=== PATIENT | female | born 1965 | race American Indian/Alaskan Native ===

== ENCOUNTER 2017-04-18 17:17 | Emergency (ER) | payer MEDICARE, MEDICAID ==
[2017-04-18 17:36] VITALS: TEMP 98.3
[2017-04-18] MEDS ORDERED: Sodium Chloride 0.9% 1,000 ML IV ONE ×2 (18:41→20:34)
--- NOTE | 2017-04-18 18:42 | C.PDOC ---
Time Seen by Provider: 04/18/17 18:00 Chief Complaint (Nursing): Abdominal Pain Past Medical History Vital Signs: Last Vital Signs Temp 98.3 F 04/18/17 17:35 Pulse 85 04/18/17 17:35 Resp 16 04/18/17 17:35 BP 174/91 H 04/18/17 17:35 Pulse Ox 98 04/18/17 17:35 - Medical History PMH: HTN, Hyperlipidemia, Schizophrenia Denies: Diabetes, Hepatitis, HIV, Seizures, Sexually Transmitted Disease Family History: States: Unknown Family Hx - Social History Hx Tobacco Use: Yes Hx Alcohol Use: No Hx Substance Use: No - Immunization History Hx Tetanus Toxoid Vaccination: No Hx Influenza Vaccination: Yes (08/2016) Hx Pneumococcal Vaccination: No ED Course And Treatment O2 Sat by Pulse Oximetry: 98
--- NOTE | 2017-04-18 18:42 | C.PDOC ---
History Of Present Illness <Yolanda Ruiz - Last Filed: 04/18/17 19:17> <Nena Becker - Last Filed: 04/18/17 21:50> 51 y/o female with PMHx of NIDDM and Psych disorder presents to ED with complaints of bilateral wrist pain, lower abdominal pain and dysuria. Patient was previously seen at [facility] on 04/13/17, and diagnosed with viral syndrome; pt has labs drawn, xrays of wrist were done (all normal except elevated glucose) and discharged same day with dx of viral syndrome and wrist pain. Copy of blood work provided that is normal but no urine work provided. Patient denies fever, chills, N/V/D or any other complaints at this time. denies vaginal discharge or bleeding. c/o vaginal itching. (Yolanda Ruiz) History Per: Patient History/Exam Limitations: no limitations Onset/Duration Of Symptoms: Days <Yolanda Ruiz - Last Filed: 04/18/17 19:17> <Nena Becker - Last Filed: 04/18/17 21:50> Time Seen by Provider: 04/18/17 18:00 Chief Complaint (Nursing): Abdominal Pain Past Medical History Reviewed: Historical Data, Nursing Documentation, Vital Signs - Medical History PMH: HTN, Hyperlipidemia, Schizophrenia Denies: Diabetes Family History: States: Unknown Family Hx - Social History Hx Tobacco Use: Yes Hx Alcohol Use: No Hx Substance Use: No - Immunization History Hx Tetanus Toxoid Vaccination: No Hx Influenza Vaccination: Yes (08/2016) Hx Pneumococcal Vaccination: No <Yolanda Ruiz - Last Filed: 04/18/17 19:17> Review Of Systems Constitutional: Negative for: Fever, Chills Gastrointestinal: Negative for: Nausea, Vomiting, Diarrhea Musculoskeletal: Negative for: Arm Pain Neurological: Negative for: Weakness, Headache, Dizziness Psych: Negative for: Anxiety <Yolanda Ruiz - Last Filed: 04/18/17 19:17> Physical Exam - Physical Exam Appears: Non-toxic, No Acute Distress Skin: Normal Color, Warm Head: Atraumatic, Normacephalic Eye(s): bilateral: Normal Inspection, PERRL Nose: Normal Oral Mucosa: Moist Neck: Normal ROM Cardiovascular: Rhythm Regular, No Murmur Respiratory: Normal Breath Sounds, No Rales, No Rhonchi, No Wheezing Gastrointestinal/Abdominal: Bowel Sounds, Soft, Tenderness (Mild superpubic tenderness), No Distention, No Guarding, No Rebound Back: No CVA Tenderness Extremity: Tenderness (Bilateral wrist, +2 dp pulses. from, no swelling noted. ) , No Swelling Neurological/Psych: Oriented x3, Normal Speech, Normal Cognition, Normal Sensation <Yolanda Ruiz - Last Filed: 04/18/17 19:17> ED Course And Treatment O2 Sat by Pulse Oximetry: 98 <Yolanda Ruiz - Last Filed: 04/18/17 19:17> - Laboratory Results Result Diagrams: 04/18/17 20:08 04/18/17 20:08 <Nena Becker - Last Filed: 04/18/17 21:50> Medical Decision Making <Yolanda Ruiz - Last Filed: 04/18/17 19:17> <Nena Becker - Last Filed: 04/18/17 21:50> Medical Decision Makin51 y/o female with urinary symptoms and vaginal itching, hx of dm; check labs, ua/uc/upreg. likely hyperglycemia with ua and nidhi (Yolanda Ruiz) Upon provider reevaluation patient is feeling better, is medically stable, and requires no further treatment in the ED at this time. Patient will be discharged home with Rx for macrobid . Counseling was provided and all questions were answered regarding diagnosis and need for follow up with the referred clinic. There is agreement to discharge plan. Return if symptoms persist or worsen. (Nena Becker) Disposition - Disposition Disposition Time: 19:21 <Yolanda Ruiz - Last Filed: 04/18/17 19:17> Counseled Patient/Family Regarding: Studies Performed, Diagnosis, Need For Followup, Rx Given <Nena Becker - Last Filed: 04/18/17 21:50> - Disposition Referrals: [facility] [Outside] [facility] [Outside] Disposition: HOME/ ROUTINE Condition: FAIR Prescriptions: Nitrofurantoin Macrocrystals [Macrobid] 1 cap PO BID #14 cap Instructions: Urinary Tract Infection in Women (DC), Diabetic Hyperglycemia (ED ) - Clinical Impression Clinical Impression: Dysuria, UTI (urinary tract infection), Hyperglycemia - PA / 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 - Scribe Statement The provider has reviewed the documentation as recorded by the Scribe <Yolanda Ruiz - Last Filed: 04/18/17 19:17> <Nena Becker - Last Filed: 04/18/17 21:50> - Scribe Statement Hua Ordonez All medical record entries made by the Scribe were at my direction and personally dictated by me. I have reviewed the chart and agree that the record accurately reflects my personal performance of the history, physical exam, medical decision making, and the department course for this patient. I have also personally directed, reviewed, and agree with the discharge instructions and disposition. (Yolanda Ruiz) Physician Patient Turnover Patient Signed Over To: Nena Becker Handoff Comments: f/u labs, ua and dispo accordingly <Yolanda Ruiz - Last Filed: 04/18/17 19:17>
[2017-04-18] MEDS ORDERED: Sodium Chloride 0.9% 1,000 ML ONE ×2 (18:55→20:46)
[2017-04-18 19:10] LABS: RBC URINE 2 /hpf (0-3); URINE BACTERIA FEW (<OCC); URINE BILIRUBIN NEGATIVE (NEGATIVE); URINE BLOOD NEGATIVE (NEGATIVE); URINE COLOR Yellow (YELLOW); URINE GLUCOSE (UA) 3+ mg/dL (Normal); URINE KETONE NEGATIVE (NEGATIVE); URINE LEUKOCYTE ESTERASE 1+ Leu/uL (Negative); URINE PROTEIN NEGATIVE (NEGATIVE); URINE UROBILINOGEN NORMAL mg/dL (0.2-1.0); WBC URINE 35 /hpf (0-5)
[2017-04-18 20:06] VITALS: RESP 20
[2017-04-18 20:12] LABS: BASO % 0.5 % (0.0-2.0); EOS # 0.1 K/uL (0.0-0.7); EOS % 1.6 % (0.0-4.0); HEMATOCRIT 36.8 % (34.0-47.0); LYMPH # 2.3 K/uL (1.0-4.3); MEAN CORPUSCULAR HEMOGLOBIN 30.7 pg (27.0-31.0); MEAN CORPUSCULAR HGB CONC 33.7 g/dL (33.0-37.0); MEAN PLATELET VOLUME 10.2 fL (7.2-11.7); MONO # 0.3 K/uL (0.0-0.8); MONO % 5.2 % (0.0-10.0); NRBC % 0.3 % (0.0-2.0); RED CELL DISTRIBUTION WIDTH 13.7 % (11.5-14.5); WHITE BLOOD COUNT 5.8 K/uL (4.8-10.8)
[2017-04-18 20:21] LABS: CHLORIDE 98 mmol/L (98-107); SODIUM 136 mmol/L (132-148)
[2017-04-18 20:23] LABS: ALB/GLOB RATIO 1.5 (1.0-2.1); ALKALINE PHOSPHATASE 101 U/L (38-126); AST/SGOT 18 U/L (14-36); BILIRUBIN,TOTAL 0.5 mg/dL (0.2-1.3); BLOOD UREA NITROGEN 12 mg/dL (7-17); CARBON DIOXIDE 29 mmol/L (22-30); GFR AFRICAN-AMERICAN > 60; TOTAL PROTEIN 6.4 g/dL (6.3-8.3)
[2017-04-18 20:24] LABS: ALT/SGPT 26 U/L (9-52); CALCIUM 8.8 mg/dl (8.6-10.4)
[2017-04-18 20:26] LABS: GLUCOSE,RANDOM 400 mg/dL (65-105)
[2017-04-18 20:54] LABS: VENOUS BLOOD GAS BASE EXCESS 1.5 mmol/L (0.0-2.0); VENOUS BLOOD GAS PCO2 49 mmHg (40-60); VENOUS BLOOD PH 7.36 (7.32-7.43)
[2017-04-18] MEDS ORDERED: (Novolin R) Insulin Human Regular 100 units/ml vial IV STA (21:25)
[2017-04-18] MEDS ORDERED: (Novolin R) Insulin Human Regular 100 units/ml vial ONE (21:44)
[2017-04-18 22:08] VITALS: BP 145/75; PULSE 78; O2SAT 98
== END 2017-04-18 22:18 | disposition home or self-care (01) ==
LOC: C.ER 17:17
DX: N39.0 Urinary tract infection, site not specified (principal); B96.20 Unspecified Escherichia coli [E. coli] as the cause of diseases classified elsewhere; E11.65 Type 2 diabetes mellitus with hyperglycemia
CPT/HCPCS: 80053; 81001; 82803; 82948; 83690; 84703; 85025; 87086; 87181; 96361; 96374; 99285; J7040

== ENCOUNTER 2017-06-14 16:28 | Emergency (ER) | payer MEDICARE, MEDICAID ==
[2017-06-14 16:39] VITALS: BP 161/94; PULSE 88; RESP 16; TEMP 97.7; O2SAT 100
--- NOTE | 2017-06-14 17:36 | C.PDOC ---
History Of Present Illness 51 year old female presents to the ED with complaints of vaginal itching for three days with urinary frequency. Patient states she has had similar symptoms in the past that were due to a yeast infection. She also presents with right wrist pain for six months and was told it was tendonitis. Patient denies any taking any over the counter medications, abdominal pain, or trauma. Time Seen by Provider: 06/14/17 17:02 Chief Complaint (Nursing): Female Genitourinary History Per: Patient History/Exam Limitations: no limitations Onset/Duration Of Symptoms: Days (3 days of vaginal discharge and urinary frequency ), Persistent (six months of right wrist pain ) Quality Of Discomfort: "Pain" (right wrist ), Other (vaginal itching ) Associated Symptoms: Urinary Symptoms. denies: Fever, Chills, Nausea, Vomiting , Diarrhea Alleviating Factors: None Recent travel outside of the [place]: No Abnormal Vaginal Bleeding: No Past Medical History Reviewed: Historical Data, Nursing Documentation, Vital Signs Vital Signs: Last Vital Signs Temp 97.7 F 06/14/17 16:38 Pulse 88 06/14/17 16:38 Resp 16 06/14/17 16:38 BP 161/94 H 06/14/17 16:38 Pulse Ox 100 06/14/17 17:47 - Medical History PMH: HTN, Hyperlipidemia, Schizophrenia Family History: States: Unknown Family Hx - Social History Hx Tobacco Use: Yes Hx Alcohol Use: No Hx Substance Use: No - Immunization History Hx Tetanus Toxoid Vaccination: No Hx Influenza Vaccination: Yes (08/2016) Hx Pneumococcal Vaccination: No Review Of Systems Constitutional: Negative for: Fever, Chills Gastrointestinal: Negative for: Nausea, Vomiting, Abdominal Pain, Diarrhea Genitourinary: Positive for: Frequency. Negative for: Hematuria, Vaginal Bleeding Physical Exam - Physical Exam Appears: Non-toxic, No Acute Distress Skin: Warm, Dry Head: Atraumatic Neck: Supple Gastrointestinal/Abdominal: Soft, No Tenderness, No Distention, No Guarding, No Rebound Pelvic: No Vaginal Bleeding, Vaginal Discharge (thin white odorless discharge ) , No Cervical Motion Tenderness Extremity: Normal ROM (full ROM to right wrist ), Tenderness (mild tenderness to right writst), Capillary Refill (good capillary refill, less than 2 seconds ) , Other (non-focal ) ED Course And Treatment O2 Sat by Pulse Oximetry: 100 (room air ) Medical Decision Making Medical Decision Makin51 year old female with vaginal itch and discharge, will treat for BV. UA was negative Disposition Counseled Patient/Family Regarding: Diagnosis, Need For Followup, Rx Given - Disposition [facility]] Disposition: HOME/ ROUTINE Disposition Time: 17:55 Condition: GOOD Additional Instructions: Follow up with your primary medical doctor or clinic in 2-5 days for further evaluation. Use cream as prescribed. Return to the emergency department at any time if symptoms persist or worsen. Prescriptions: Metronidazole [Metrogel-Vaginal] 0.75 gel VG HS #1 gel Instructions: Bacterial Vaginosis (ED) - POA Present On Arrival: None - Clinical Impression Clinical Impression: Bacterial vaginosis - Scribe Statement The provider has reviewed the documentation as recorded by the Scribe Nancy Reyna All medical record entries made by the Leannaibjasvir were at my direction and personally dictated by me. I have reviewed the chart and agree that the record accurately reflects my personal performance of the history, physical exam, medical decision making, and the department course for this patient. I have also personally directed, reviewed, and agree with the discharge instructions and disposition.
[2017-06-14 17:42] LABS: SQUAMOUS EPITHIAL 1 /hpf (0-5); URINE BILIRUBIN NEGATIVE (NEGATIVE); URINE BLOOD NEGATIVE (NEGATIVE); URINE CLARITY Clear (Clear); URINE COLOR Straw (YELLOW); URINE GLUCOSE (UA) 3+ mg/dL (Normal); URINE LEUKOCYTE ESTERASE NEG Leu/uL (Negative); URINE NITRATE NEGATIVE (NEGATIVE); URINE PROTEIN NEGATIVE (NEGATIVE); URINE UROBILINOGEN NORMAL mg/dL (0.2-1.0)
== END 2017-06-14 17:59 | disposition home or self-care (01) ==
LOC: C.ER 16:28
DX: N76.0 Acute vaginitis (principal); B96.20 Unspecified Escherichia coli [E. coli] as the cause of diseases classified elsewhere

== ENCOUNTER 2017-07-09 11:06 | Emergency (ER) | payer MEDICARE, MEDICAID ==
[2017-07-09 11:13] VITALS: TEMP 97.6
--- NOTE | 2017-07-09 11:54 | C.PDOC ---
History Of Present Illness A 51 y/o female c/o itchy sensation to bilateral eyes for 2 days. States she was using a strainer cleaner in apartment and some of the chemicals got into her eyes. Patient did not wash her eyes out. Was seen at medical center and was given Erythromycin ointment for her eyes, but she did not fill the prescription. Denies fever, chills, new foods, sick contact, or any other complaints. Time Seen by Provider: 07/09/17 11:21 Chief Complaint (Nursing): Abnormal Skin Integrity History Per: Patient History/Exam Limitations: no limitations Onset/Duration Of Symptoms: Days (2) Current Symptoms Are (Timing): Still Present Quality Of Symptoms: Itching Severity: Mild Recent travel outside of the [place]: No Additional History Per: Patient Past Medical History Reviewed: Historical Data, Nursing Documentation, Vital Signs Vital Signs: Last Vital Signs Temp 97.6 F 07/09/17 11:09 Pulse 78 07/09/17 12:48 Resp 18 07/09/17 12:48 BP 155/85 H 07/09/17 12:48 Pulse Ox 100 07/09/17 12:49 - Medical History PMH: HTN, Hyperlipidemia, Schizophrenia Denies: Diabetes, Hepatitis, HIV, Seizures, Sexually Transmitted Disease Family History: States: No Known Family Hx, Unknown Family Hx - Social History Hx Tobacco Use: Yes Hx Alcohol Use: Yes Hx Substance Use: No - Immunization History Hx Tetanus Toxoid Vaccination: No Hx Influenza Vaccination: Yes (08/2016) Hx Pneumococcal Vaccination: No Review Of Systems Except As Marked, All Systems Reviewed And Found Negative. Constitutional: Negative for: Fever, Chills Eyes: Positive for: Other (Itchy sensation to the bilateral eyes) Physical Exam - Physical Exam Appears: Non-toxic, No Acute Distress Skin: Warm, Dry Head: Atraumatic, Normacephalic Eye(s): bilateral: PERRL, EOMI, Other (Swelling to the bilateral periorbital eyes. NO conjunctiva injection. No foreign body seen.) Oral Mucosa: Moist Neck: Normal ROM, Supple Chest: Symmetrical, No Tenderness Cardiovascular: Rhythm Regular, No Friction Rub, No Murmur Respiratory: No Normal Breath Sounds, No Rales, No Rhonchi, No Stridor, No Wheezing Gastrointestinal/Abdominal: Normal Exam, Soft, No Tenderness Back: Normal Inspection, No CVA Tenderness Neurological/Psych: Oriented x3, Normal Speech, Normal Cognition, Normal Motor, Normal Sensation Gait: Steady ED Course And Treatment O2 Sat by Pulse Oximetry: 100 (RA) Pulse Ox Interpretation: Normal Medical Decision Making Medical Decision Making: Impression: A 51 y/o F c/o itchy sensation to bilateral eyes for 2 days. Plans: * Benadryl * PrednisoLONE * UA * Reassess the eyes were irrigated with saline solution by Nazon. Patient was instructed to irrigate eyes at home with saline solution and to take the prescription of erythromycin given. Patient is in no acute distress and is improving with the itchy sensation. Patient is afebrile at this time and was instructed to follow up with PMD if symptom persists or to return if symptoms worsens. Disposition - Disposition Referrals: Otis Sykes MD [Staff Provider] - Disposition: HOME/ ROUTINE Disposition Time: 12:43 Condition: GOOD Additional Instructions: Follow up with the Eye doctor within 1-2 days. Return if worsened. Prescriptions: Ciprofloxacin [Cipro] 1 tab PO BID #14 tab DiphenhydrAMINE [Benadryl] 25 mg PO QID #28 cap Phenazopyridine HCl [Pyridium] 200 mg PO TID #7 tablet predniSONE [Prednisone] 20 mg PO BID #10 tab Instructions: Eye Wash (Into the eye), Urinary Tract Infection in Women (ED) Forms: [facility] (Frisian) - Clinical Impression Clinical Impression: Chemical conjunctivitis, UTI (urinary tract infection) - Scribe Statement The provider has reviewed the documentation as recorded by the Scribe Deloris dalal All medical record entries made by the Scribe were at my direction and personally dictated by me. I have reviewed the chart and agree that the record accurately reflects my personal performance of the history, physical exam, medical decision making, and the department course for this patient. I have also personally directed, reviewed, and agree with the discharge instructions and disposition.
[2017-07-09 12:14] LABS: RBC URINE 3 /hpf (0-3); URINE BACTERIA OCC (<OCC); URINE BILIRUBIN NEGATIVE (NEGATIVE); URINE BLOOD NEGATIVE (NEGATIVE); URINE COLOR Yellow (YELLOW); URINE GLUCOSE (UA) 3+ mg/dL (Normal); URINE KETONE NEGATIVE (NEGATIVE); URINE PROTEIN NEGATIVE (NEGATIVE); URINE UROBILINOGEN NORMAL mg/dL (0.2-1.0)
[2017-07-09 12:18] LABS: URINE LEUKOCYTE ESTERASE TRACE Leu/uL (Negative); WBC URINE 23 /hpf (0-5)
[2017-07-09 12:49] VITALS: BP 155/85; PULSE 78; RESP 18
[2017-07-09 12:50] VITALS: O2SAT 100
== END 2017-07-09 12:48 | disposition home or self-care (01) ==
LOC: C.ER 11:06
DX: H10.213 Acute toxic conjunctivitis, bilateral (principal); N39.0 Urinary tract infection, site not specified

== ENCOUNTER 2017-07-27 14:32 | Emergency (ER) | payer MEDICARE, MEDICAID ==
[2017-07-27] MEDS ORDERED: Sodium Chloride 0.9% 1,000 ML ONE ×2 (15:03→15:28)
[2017-07-27 15:21] LABS: BASO # 0.1 K/uL (0.0-0.2); BASO % 1.2 % (0.0-2.0); HEMATOCRIT 38.5 % (34.0-47.0); LYMPH # 0.9 K/uL (1.0-4.3); LYMPH % 10.2 % (20.0-40.0); MEAN CELL VOLUME 90.9 fL (81.0-99.0); MEAN CORPUSCULAR HEMOGLOBIN 30.2 pg (27.0-31.0); MEAN CORPUSCULAR HGB CONC 33.3 g/dL (33.0-37.0); MEAN PLATELET VOLUME 9.4 fL (7.2-11.7); MONO # 0.8 K/uL (0.0-0.8); MONO % 8.9 % (0.0-10.0); NRBC % 0.1 % (0.0-2.0); RED CELL DISTRIBUTION WIDTH 14.6 % (11.5-14.5); WHITE BLOOD COUNT 9.2 K/uL (4.8-10.8)
[2017-07-27] MEDS ORDERED: Sodium Chloride 0.9% 1,000 ML IV ONE ×2 (15:21→15:56)
[2017-07-27 15:32] LABS: DRAW SITE VENOUS
--- NOTE | 2017-07-27 15:35 | C.PDOC ---
History Of Present Illness Patient is a 51 y/o female presents to ED for evaluation of abdominal discomfort for the last 2 days. Patient states that she ate a sandwich from a restaurant 2 days ago and has not been feeling well since then. Pt states that has had low grade fever, and continues to feel weak, dizzy, and lightheaded. Pt reports having decreased appetite, and diminished urinary output. Otherwise, denies any vomiting, diarrhea, dysuria, hematuria, or any other associated symptoms. Time Seen by Provider: 07/27/17 14:50 Chief Complaint (Nursing): Abdominal Pain History Per: Patient History/Exam Limitations: no limitations Onset/Duration Of Symptoms: Days Current Symptoms Are (Timing): Still Present Context: Food Location Of Pain/Discomfort: Diffuse Radiation Of Pain To:: None Quality Of Discomfort: "Pain" Associated Symptoms: Fever, Loss Of Appetite. denies: Vomiting, Diarrhea, Back Pain, Chest Pain, Constipation, Urinary Symptoms Exacerbating Factors: None Alleviating Factors: None Recent travel outside of the [place]: No Additional History Per: Patient Abnormal Vaginal Bleeding: No Past Medical History Reviewed: Historical Data, Nursing Documentation, Vital Signs Vital Signs: Last Vital Signs Temp 100.9 F H 07/27/17 14:59 Pulse 100 H 07/27/17 14:59 Resp 16 07/27/17 14:59 BP 145/79 07/27/17 14:59 Pulse Ox 94 L 07/27/17 15:39 - Medical History PMH: HTN, Hyperlipidemia, Schizophrenia Denies: Diabetes, Hepatitis, HIV, Seizures, Sexually Transmitted Disease Family History: States: Unknown Family Hx - Social History Hx Tobacco Use: Yes Hx Alcohol Use: Yes Hx Substance Use: No - Immunization History Hx Tetanus Toxoid Vaccination: No Hx Influenza Vaccination: Yes (08/2016) Hx Pneumococcal Vaccination: No Review Of Systems Except As Marked, All Systems Reviewed And Found Negative. Constitutional: Positive for: Weakness. Negative for: Fever, Chills Cardiovascular: Positive for: Light Headedness. Negative for: Chest Pain, Palpitations Respiratory: Negative for: Shortness of Breath Gastrointestinal: Positive for: Abdominal Pain. Negative for: Vomiting, Diarrhea, Constipation Genitourinary: Negative for: Dysuria, Frequency, Hematuria Musculoskeletal: Negative for: Back Pain Neurological: Positive for: Dizziness. Negative for: Headache Physical Exam - Physical Exam Appears: Non-toxic, No Acute Distress Skin: Normal Color, Warm, Dry, No Rash Head: Atraumatic, Normacephalic Eye(s): bilateral: Normal Inspection Oral Mucosa: Dry Neck: Normal ROM, Supple Chest: Symmetrical Cardiovascular: No Murmur, Other (tachycardic) Respiratory: Normal Breath Sounds, No Rales, No Rhonchi, No Wheezing Gastrointestinal/Abdominal: Bowel Sounds, Soft, No Tenderness, No Guarding, No Rebound Back: Normal Inspection, No CVA Tenderness Extremity: Bilateral: Atraumatic, Normal ROM Neurological/Psych: Oriented x3, Normal Speech, Normal Cognition ED Course And Treatment - Laboratory Results Result Diagrams: 07/27/17 15:17 07/27/17 15:17 Lab Interpretation: Abnormal (blood sugar 331, urine WBC 15, nitrite + with many bacteria. Culture sent.) O2 Sat by Pulse Oximetry: 94 Pulse Ox Interpretation: Normal Progress Note: Plan: Blood work, UA. Patient better after IV fluids. Repeat blood sugar 235. She normally takes Metformin 500mg once a day. Reevaluation Time: 17:08 Reassessment Condition: Improved Disposition Counseled Patient/Family Regarding: Studies Performed, Diagnosis, Need For Followup, Rx Given - Disposition Referrals: [facility] [Outside] Disposition: HOME/ ROUTINE Disposition Time: 17:09 Condition: IMPROVED Additional Instructions: Encourage plenty of fluids and rest. Take your Metformin twice a day. Prescriptions: Nitrofurantoin Macrocrystals [Macrobid] 1 cap PO BID #14 cap Instructions: Diabetic Hyperglycemia (ED), Urinary Tract Infection in Women (ED ) Forms: [facility] (Burundian) - Clinical Impression Clinical Impression: UTI (urinary tract infection), Diabetes mellitus with hyperglycemia - Scribe Statement The provider has reviewed the documentation as recorded by the Scribe Ej Harrell All medical record entries made by the Scribe were at my direction and personally dictated by me. I have reviewed the chart and agree that the record accurately reflects my personal performance of the history, physical exam, medical decision making, and the department course for this patient. I have also personally directed, reviewed, and agree with the discharge instructions and disposition.
[2017-07-27 15:36] LABS: CHLORIDE 96 mmol/L (98-107); POTASSIUM 4.1 mmol/L (3.6-5.2); SODIUM 134 mmol/L (132-148)
[2017-07-27 15:36] LABS: VENOUS BLOOD GAS BASE EXCESS 2.2 mmol/L (0.0-2.0); VENOUS BLOOD GAS PCO2 46 mmHg (40-60); VENOUS BLOOD PH 7.39 (7.32-7.43)
[2017-07-27 15:38] LABS: BILIRUBIN,TOTAL 1.4 mg/dL (0.2-1.3); GFR AFRICAN-AMERICAN > 60
[2017-07-27 15:39] LABS: ALKALINE PHOSPHATASE 89 U/L (38-126); ALT/SGPT 27 U/L (9-52); AST/SGOT 21 U/L (14-36); BLOOD UREA NITROGEN 14 mg/dL (7-17); CALCIUM 8.8 mg/dl (8.6-10.4); CARBON DIOXIDE 25 mmol/L (22-30); GLUCOSE,RANDOM 315 mg/dL (65-105); TOTAL PROTEIN 6.8 g/dL (6.3-8.3)
[2017-07-27 15:47] LABS: RBC URINE 2 /hpf (0-3); URINE BACTERIA MANY (<OCC); URINE BILIRUBIN NEGATIVE (NEGATIVE); URINE BLOOD 1+ (NEGATIVE); URINE COLOR Yellow (YELLOW); URINE GLUCOSE (UA) 3+ mg/dL (Normal); URINE KETONE 1+ mg/dL (NEGATIVE); URINE LEUKOCYTE ESTERASE NEG Leu/uL (Negative); URINE PROTEIN 1+ mg/dL (NEGATIVE); URINE UROBILINOGEN NORMAL mg/dL (0.2-1.0); WBC URINE 15 /hpf (0-5)
[2017-07-27 17:43] VITALS: BP 125/77; PULSE 78; RESP 17; TEMP 98; O2SAT 100
== END 2017-07-27 18:10 | disposition home or self-care (01) ==
LOC: C.ER 14:32
DX: N39.0 Urinary tract infection, site not specified (principal); E11.65 Type 2 diabetes mellitus with hyperglycemia
CPT/HCPCS: 80053; 81001; 82803; 82948; 83690; 85025; 87086; 87181; 96360; 99284; J7040

== ENCOUNTER 2017-08-25 15:50 | Emergency (ER) | payer MEDICARE, MEDICAID ==
[2017-08-25 16:41] VITALS: BP 199/98; PULSE 77; RESP 18; TEMP 98.4; O2SAT 98
[2017-08-25] MEDS ORDERED: Sodium Chloride 0.9% 1,000 ML IV ONE (17:25)
[2017-08-25] MEDS ORDERED: Sodium Chloride 0.9% 1,000 ML ONE (17:48)
[2017-08-25 17:55] LABS: BASO # 0.2 K/uL (0.0-0.2); EOS # 0.1 K/uL (0.0-0.7); EOS % 1.9 % (0.0-4.0); HEMATOCRIT 36.2 % (34.0-47.0); LYMPH % 36.2 % (20.0-40.0); MEAN CELL VOLUME 92.4 fL (81.0-99.0); MEAN CORPUSCULAR HEMOGLOBIN 30.2 pg (27.0-31.0); MEAN CORPUSCULAR HGB CONC 32.7 g/dL (33.0-37.0); MEAN PLATELET VOLUME 8.8 fL (7.2-11.7); MONO # 0.4 K/uL (0.0-0.8); MONO % 6.6 % (0.0-10.0); NRBC % 0.1 % (0.0-2.0); RED CELL DISTRIBUTION WIDTH 15.5 % (11.5-14.5); WHITE BLOOD COUNT 5.5 K/uL (4.8-10.8)
[2017-08-25 19:20] LABS: CHLORIDE 98 mmol/L (98-107)
[2017-08-25 19:21] LABS: SODIUM 135 mmol/L (132-148)
[2017-08-25 19:23] LABS: ALB/GLOB RATIO 1.2 (1.0-2.1); AST/SGOT 16 U/L (14-36); BILIRUBIN,TOTAL 0.5 mg/dL (0.2-1.3); CARBON DIOXIDE 25 mmol/L (22-30); GFR AFRICAN-AMERICAN > 60; TOTAL PROTEIN 6.2 g/dL (6.3-8.3)
[2017-08-25 19:24] LABS: ALKALINE PHOSPHATASE 66 U/L (38-126); ALT/SGPT 21 U/L (9-52); BLOOD UREA NITROGEN 10 mg/dL (7-17); CALCIUM 8.9 mg/dl (8.6-10.4); GLUCOSE,RANDOM 285 mg/dL (65-105)
--- NOTE | 2017-08-25 21:52 | C.PDOC ---
History Of Present Illness 52 year old female presents to the ED for evaluation of bilateral blurry vision which has been progressing for months. Patient also c/o sore throat. Patient admits to being noncompliant with medications. Patient states she has been evaluated by her opthamologist and is scheduled for anther appointment next month. Notes its only blurry when she reads. No eye pain. No FB sensation. No trauma, discharge, redness, or headache. She denies fever, chest pain, sob, abdominal pain, difficulty breathing, difficulty swallowing. Time Seen by Provider: 08/25/17 17:23 Chief Complaint (Nursing): ENT Problem History Per: Patient History/Exam Limitations: None Onset/Duration Of Symptoms: Other (months) Past Medical History Reviewed: Historical Data, Nursing Documentation, Vital Signs Vital Signs: Last Vital Signs Temp 98.4 F 08/25/17 16:34 Pulse 77 08/25/17 16:34 Resp 18 08/25/17 16:34 BP 199/98 H 08/25/17 16:34 Pulse Ox 98 08/25/17 21:55 - Medical History PMH: HTN, Hyperlipidemia, Schizophrenia Denies: Diabetes Surgical History: No Surg Hx Family History: States: Unknown Family Hx - Social History Hx Tobacco Use: Yes Hx Alcohol Use: Yes Hx Substance Use: No (DENIED) - Immunization History Hx Tetanus Toxoid Vaccination: No Hx Influenza Vaccination: Yes (08/2016) Hx Pneumococcal Vaccination: No Review Of Systems Constitutional: Negative for: Fever, Chills Eyes: Positive for: Vision Change (blurry) ENT: Positive for: Throat Pain Physical Exam - Physical Exam Appears: Non-toxic, No Acute Distress Skin: Normal Color, Warm, Dry Head: Atraumatic, Normacephalic Eye(s): bilateral: EOMI, Other (haziness to cornea) Ear(s): Bilateral: Normal Nose: Normal Oral Mucosa: Moist Throat: Normal, No Erythema, No Exudate Neck: Normal ROM, Supple Chest: Symmetrical, No Deformity, No Tenderness Cardiovascular: Rhythm Regular, No Murmur Respiratory: Normal Breath Sounds, No Rales, No Rhonchi, No Wheezing Extremity: Normal ROM, Capillary Refill (less than 2 seconds ) Neurological/Psych: Oriented x3, Normal Speech, Normal Cognition Gait: Steady ED Course And Treatment - Laboratory Results Result Diagrams: 08/25/17 17:51 08/25/17 17:51 O2 Sat by Pulse Oximetry: 98 (on RA) Pulse Ox Interpretation: Normal Progress Note: labs ordered and reviewed. Patient received IV fluids. Patient pulled out of IV and walked out of the ED prior to re-evaluation and completion of treatment. This was against medical advice and pt was informed of the risks including disability, deterioartion and . 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 - Scribe Statement The provider has reviewed the documentation as recorded by the Scribe (Nicky Harrell) All medical record entries made by the Scribe were at my direction and personally dictated by me. I have reviewed the chart and agree that the record accurately reflects my personal performance of the history, physical exam, medical decision making, and the department course for this patient. I have also personally directed, reviewed, and agree with the discharge instructions and disposition.
== END 2017-08-25 19:45 | disposition home or self-care (01) ==
LOC: C.ER 15:50
DX: H26.9 Unspecified cataract (principal); R73.9 Hyperglycemia, unspecified
CPT/HCPCS: 80053; 82009; 85025; 96360; 99282; J7040

== ENCOUNTER 2017-11-28 13:38 | Emergency (ER) | payer MEDICARE, MEDICAID ==
[2017-11-28 14:23] LABS: SQUAMOUS EPITHIAL 2 /hpf (0-5); URINE BILIRUBIN NEGATIVE (NEGATIVE); URINE BLOOD NEGATIVE (NEGATIVE); URINE CLARITY Clear (Clear); URINE COLOR Straw (YELLOW); URINE GLUCOSE (UA) 3+ mg/dL (Normal); URINE LEUKOCYTE ESTERASE NEG Leu/uL (Negative); URINE NITRATE NEGATIVE (NEGATIVE); URINE PROTEIN NEGATIVE (NEGATIVE); URINE UROBILINOGEN NORMAL mg/dL (0.2-1.0)
[2017-11-28 14:25] LABS: HCG,QUALITATIVE URINE NEGATIVE (NEGATIVE)
[2017-11-28 14:53] LABS: INFLUENZA A B NEGATIVE FOR FLU A/B (NEGATIVE)
--- NOTE | 2017-11-28 14:56 | RAD ---
HISTORY: r/o infiltrate COMPARISON: 07/29/2016 TECHNIQUE: Chest PA and lateral FINDINGS: LUNGS: No active pulmonary disease. PLEURA: No significant pleural effusion identified. No pneumothorax apparent. CARDIOVASCULAR: Normal. OSSEOUS STRUCTURES: No significant abnormalities. VISUALIZED UPPER ABDOMEN: Normal. OTHER FINDINGS: None. IMPRESSION: No active disease.
[2017-11-28] MEDS ORDERED: guaiFENesin 100 mg/5 ml Syrup UD PO STA (16:06)
[2017-11-28] MEDS ORDERED: guaiFENesin 100 mg/5 ml Syrup UD ONE (16:06)
[2017-11-28 16:08] VITALS: BP 165/85; PULSE 70; RESP 16; TEMP 97.6; O2SAT 98
--- NOTE | 2017-11-28 16:23 | C.PDOC ---
History Of Present Illness 52 y/o female presents to the ED for evaluation of sore throat and dry cough which began 4 days ago. Patient also reports subjective fever. She denies chest pain, shortness of breath, nausea, vomiting. Chief Complaint (Nursing): Cough, Cold, Congestion History Per: Patient History/Exam Limitations: no limitations Onset/Duration Of Symptoms: Days (4) Current Symptoms Are (Timing): Still Present Location Of Pain: Throat Sick Contacts (Context): None Associated Symptoms: Fever, Sore Throat, Cough. denies: Sputum, Nausea, Vomiting Ear Symptoms: Bilateral: None Additional History Per: Patient Past Medical History Reviewed: Historical Data, Nursing Documentation, Vital Signs Vital Signs: Last Vital Signs Temp 97.6 F 11/28/17 16:07 Pulse 70 11/28/17 16:07 Resp 16 11/28/17 16:07 BP 165/85 H 11/28/17 16:07 Pulse Ox 98 11/28/17 17:45 - Medical History PMH: HTN, Hyperlipidemia, Schizophrenia Surgical History: No Surg Hx Family History: States: Unknown Family Hx - Social History Hx Tobacco Use: Yes Hx Alcohol Use: Yes Hx Substance Use: No (DENIED) - Immunization History Hx Tetanus Toxoid Vaccination: No Hx Influenza Vaccination: Yes (08/2016) Hx Pneumococcal Vaccination: No Review Of Systems Constitutional: Positive for: Fever ENT: Positive for: Throat Pain Cardiovascular: Negative for: Chest Pain Respiratory: Positive for: Cough. Negative for: Shortness of Breath, Sputum Gastrointestinal: Negative for: Nausea, Vomiting Physical Exam - Physical Exam Appears: Non-toxic, No Acute Distress, Other (slightly uncooperative) Skin: Normal Color, Warm, Dry Head: Atraumatic, Normacephalic Eye(s): bilateral: Normal Inspection Ear(s): Bilateral: Normal Nose: Normal, No Discharge Oral Mucosa: Moist Throat: Normal, No Erythema, No Exudate Neck: Supple Chest: Symmetrical, No Deformity, No Tenderness Cardiovascular: Rhythm Regular, No Murmur Respiratory: Normal Breath Sounds, No Rales, No Rhonchi, No Wheezing Extremity: Normal ROM, Capillary Refill (less than 2 seconds) Neurological/Psych: Oriented x3, Normal Speech, Normal Cognition Gait: Steady ED Course And Treatment O2 Sat by Pulse Oximetry: 98 (on RA) Pulse Ox Interpretation: Normal - Other Rad CXR X-Ray: Interpreted by Me, Viewed By Me, Read By Radiologist Interpretation: HISTORY: r/o infiltrate. COMPARISON: 07/29/2016. TECHNIQUE: Chest PA and lateral. FINDINGS: LUNGS: No active pulmonary disease. PLEURA: No significant pleural effusion identified. No pneumothorax apparent. CARDIOVASCULAR: Normal. OSSEOUS STRUCTURES: No significant abnormalities. VISUALIZED UPPER ABDOMEN: Normal. OTHER FINDINGS: None. IMPRESSION: No active disease. Medical Decision Making Medical Decision Making: Progress: CXR, Urinalysis. Influenza A/B and Rapid Strep test ordered and resulted negative. Robitussin PO administered. On reassessment, patient is resting comfortably, remains afebrile, is showing no signs of distress and is stable for discharge. Patient is advised to follow up with her PMD within 3-5 days for further evaluation and/or return to the ED if symptoms return or worsen. Disposition - Disposition Referrals: Pradip Rubi, [Non-Staff] - Disposition: HOME/ ROUTINE Disposition Time: 15:10 Condition: GOOD Additional Instructions: Thank you for letting us take care of you today. The emergency medical care you received today was directed at your acute symptoms. If you were prescribed any medication, please fill it and take as directed. It may take several days for your symptoms to resolve. Return to the Emergency Department if your symptoms worsen, do not improve, or if you have any other problems. Please contact your doctor or call one of the physicians/clinics you have been referred to that are listed on the Patient Visit Information form that is included in your discharge packet. Bring any paperwork you were given at discharge with you along with any medications you are taking to your follow up visit. Our treatment cannot replace ongoing medical care by a primary care provider (PCP) outside of the emergency department. Thank you for allowing the [facility] team to be part of your care today. Follow up with your doctor in 3-5 days for re-evaluation and further management. Prescriptions: Azithromycin [Zithromax] 250 mg PO DAILY #6 tab Ibuprofen [Motrin] 600 mg PO Q6 PRN #20 tab PRN Reason: Pain, Moderate (4-7) Instructions: Upper Respiratory Infection (ED) Forms: [employer] (Ethiopian) - Clinical Impression Clinical Impression: URI (upper respiratory infection) - Scribe Statement The provider has reviewed the documentation as recorded by the Scribe (Nicky Harrell) Provider Attestation: All medical record entries made by the Scribe were at my direction and personally dictated by me. I have reviewed the chart and agree that the record accurately reflects my personal performance of the history, physical exam, medical decision making, and the department course for this patient. I have also personally directed, reviewed, and agree with the discharge instructions and disposition.
== END 2017-11-28 16:07 | disposition home or self-care (01) ==
LOC: C.ER 13:38
DX: J06.9 Acute upper respiratory infection, unspecified (principal)

== ENCOUNTER 2017-12-10 15:59 | Emergency (ER) | payer MEDICARE, MEDICAID ==
[2017-12-10 16:27] VITALS: PULSE 81
--- NOTE | 2017-12-10 17:14 | C.PDOC ---
History Of Present Illness 52 y/o female presents to ED for evaluation of rash on her face associated with complaints of sore throat and feeling tired since this morning. Patient states she just moved into new apartment and has not been able to sleep well secondary to "everything still being chaotic". Patient denies congestion, fever, trouble swallowing, congestion or any other complaints at this time. She has a past history of "anemia" and has had fatigue in the past. Time Seen by Provider: 12/10/17 16:33 Chief Complaint (Nursing): Medical Clearance History Per: Patient History/Exam Limitations: no limitations Onset/Duration Of Symptoms: Days Current Symptoms Are (Timing): Still Present Past Medical History Reviewed: Historical Data, Nursing Documentation, Vital Signs Vital Signs: Last Vital Signs Temp 98 F 12/10/17 16:23 Pulse 81 12/10/17 16:23 Resp 18 12/10/17 16:23 BP 176/99 H 12/10/17 16:23 Pulse Ox 99 12/10/17 18:33 - Medical History PMH: HTN, Hyperlipidemia, Schizophrenia Surgical History: No Surg Hx Family History: States: No Known Family Hx - Social History Hx Tobacco Use: Yes Hx Alcohol Use: Yes Hx Substance Use: No (DENIED) - Immunization History Hx Tetanus Toxoid Vaccination: No Hx Influenza Vaccination: Yes (08/2017) Hx Pneumococcal Vaccination: No Review Of Systems Constitutional: Negative for: Fever, Chills ENT: Positive for: Throat Pain. Negative for: Nose Congestion Cardiovascular: Negative for: Chest Pain Respiratory: Negative for: Shortness of Breath Gastrointestinal: Negative for: Nausea, Vomiting Skin: Positive for: Rash Neurological: Negative for: Weakness, Numbness Physical Exam - Physical Exam Appears: Non-toxic, No Acute Distress Skin: Warm, Dry, No Rash Head: Atraumatic, Normacephalic Eye(s): bilateral: Normal Inspection Oral Mucosa: Moist Tongue: Normal Appearing, No Swelling Lips: Normal Appearing, No Swelling Throat: Normal, No Erythema, No Exudate Cardiovascular: Rhythm Regular Respiratory: Normal Breath Sounds, No Rales, No Rhonchi, No Wheezing Gastrointestinal/Abdominal: Soft, No Tenderness, No Guarding, No Rebound Extremity: Normal ROM, Capillary Refill (<2 seconds) Neurological/Psych: Oriented x3 ED Course And Treatment - Laboratory Results Result Diagrams: 12/10/17 17:19 12/10/17 17:19 Lab Interpretation: Abnormal (Na 127, Glucose 388) O2 Sat by Pulse Oximetry: 99 (RA) Pulse Ox Interpretation: Normal Progress Note: Patient given a liter of normal saline to help correct glucose and sodium. Disposition Counseled Patient/Family Regarding: Studies Performed, Diagnosis, Need For Followup, Rx Given - Disposition Referrals: [facility] [Outside] Disposition: HOME/ ROUTINE Disposition Time: 20:06 Condition: IMPROVED Prescriptions: Hydrocortisone Allison 0.2% Cr [Westcort] 1 ea TP BID PRN #1 tube PRN Reason: Rash Instructions: Diabetic Hyperglycemia (ED), Dermatitis (ED) Forms: [employer] (Peruvian) - Clinical Impression Clinical Impression: Diabetes mellitus with hyperglycemia, Facial rash - Scribe Statement The provider has reviewed the documentation as recorded by the Scribjasvir Ordonez All medical record entries made by the Leannaibjasvir were at my direction and personally dictated by me. I have reviewed the chart and agree that the record accurately reflects my personal performance of the history, physical exam, medical decision making, and the department course for this patient. I have also personally directed, reviewed, and agree with the discharge instructions and disposition.
[2017-12-10 17:31] LABS: SQUAMOUS EPITHIAL < 1 /hpf (0-5); URINE BACTERIA RARE (<OCC); URINE BILIRUBIN NEGATIVE (NEGATIVE); URINE BLOOD NEGATIVE (NEGATIVE); URINE CLARITY Clear (Clear); URINE COLOR Straw (YELLOW); URINE GLUCOSE (UA) 3+ mg/dL (Normal); URINE LEUKOCYTE ESTERASE NEG Leu/uL (Negative); URINE NITRATE NEGATIVE (NEGATIVE); URINE PROTEIN NEGATIVE (NEGATIVE); URINE UROBILINOGEN NORMAL mg/dL (0.2-1.0)
[2017-12-10 17:32] LABS: BASO % 0.7 % (0.0-2.0); EOS # 0.1 K/uL (0.0-0.7); EOS % 2.5 % (0.0-4.0); LYMPH # 2.3 K/uL (1.0-4.3); LYMPH % 44.9 % (20.0-40.0); MEAN CORPUSCULAR HEMOGLOBIN 29.5 pg (27.0-31.0); MEAN CORPUSCULAR HGB CONC 32.4 g/dL (33.0-37.0); MONO # 0.3 K/uL (0.0-0.8); MONO % 6.3 % (0.0-10.0); NEUT # 2.4 K/uL (1.8-7.0); NEUT % 45.6 % (50.0-75.0); NRBC % 0.2 % (0.0-2.0); RBC 4.06 Mil/uL (3.80-5.20); RED CELL DISTRIBUTION WIDTH 14.3 % (11.5-14.5); WHITE BLOOD COUNT 5.2 K/uL (4.8-10.8)
[2017-12-10 17:39] LABS: ALBUMIN 3.6 g/dL (3.5-5.0); ALT/SGPT 35 U/L (9-52); AST/SGOT 17 U/L (14-36); BLOOD UREA NITROGEN 14 mg/dL (7-17); GFR AFRICAN-AMERICAN > 60; GFR NON-AFRICAN AMERICAN > 60
[2017-12-10 17:42] LABS: ALB/GLOB RATIO 1.5 (1.0-2.1)
[2017-12-10] MEDS ORDERED: Sodium Chloride 0.9% 1,000 ML IV ONE (17:53)
[2017-12-10 20:53] VITALS: BP 157/82; RESP 20; TEMP 98.3; O2SAT 97
== END 2017-12-10 21:03 | disposition home or self-care (01) ==
LOC: C.ER 15:59
DX: E11.65 Type 2 diabetes mellitus with hyperglycemia (principal); R21 Rash and other nonspecific skin eruption
CPT/HCPCS: 80053; 81001; 82948; 85025; 96360; 99283; J7040

== ENCOUNTER 2018-02-13 13:14 | Emergency (ER) | payer MEDICARE, MEDICAID ==
[2018-02-13 13:25] VITALS: TEMP 97.4; O2SAT 97
[2018-02-13] MEDS ORDERED: Sodium Chloride 0.9% 1,000 ML IV ONE (13:36)
--- NOTE | 2018-02-13 13:39 | C.PDOC ---
History Of Present Illness 52 year old female presents to the ED for evaluation of abdominal pain, dysuria , sore throat over the last few days. Patient denies fever, nausea, vomit, diarrhea, back pain, vaginal bleeding, vaginal discharge. Time Seen by Provider: 02/13/18 13:25 Chief Complaint (Nursing): Abdominal Pain History Per: Patient History/Exam Limitations: clinical condition Onset/Duration Of Symptoms: Days Current Symptoms Are (Timing): Still Present Location Of Pain/Discomfort: Suprapubic Radiation Of Pain To:: None Quality Of Discomfort: "Pain" Associated Symptoms: Chills, Urinary Symptoms Alleviating Factors: None Recent travel outside of the [place]: No Additional History Per: Patient Abnormal Vaginal Bleeding: No Past Medical History Reviewed: Historical Data, Nursing Documentation, Vital Signs Vital Signs: Last Vital Signs Temp 97.4 F L 02/13/18 13:22 Pulse 76 02/13/18 14:38 Resp 18 02/13/18 14:38 BP 164/86 H 02/13/18 14:38 Pulse Ox 97 02/13/18 15:03 - Medical History PMH: HTN, Hyperlipidemia, Schizophrenia Denies: HIV, Seizures, Sexually Transmitted Disease Surgical History: No Surg Hx Family History: States: Unknown Family Hx - Social History Hx Tobacco Use: Yes Hx Alcohol Use: Yes Hx Substance Use: No (DENIED) - Immunization History Hx Tetanus Toxoid Vaccination: No Hx Influenza Vaccination: Yes (08/2017) Hx Pneumococcal Vaccination: No Review Of Systems Except As Marked, All Systems Reviewed And Found Negative. Constitutional: Positive for: Chills Gastrointestinal: Positive for: Abdominal Pain Genitourinary: Positive for: Dysuria Physical Exam - Physical Exam Appears: Non-toxic, No Acute Distress Skin: Normal Color, Warm, Dry Head: Atraumatic, Normacephalic Eye(s): bilateral: Normal Inspection Nose: No Discharge Oral Mucosa: Moist Throat: Erythema, No Exudate Chest: Symmetrical Cardiovascular: Rhythm Regular, No Murmur Respiratory: Normal Breath Sounds, No Rales, No Rhonchi, No Wheezing Gastrointestinal/Abdominal: Soft, Tenderness (Suprapubic), No Guarding, No Rebound Extremity: Normal ROM, No Tenderness, No Swelling Neurological/Psych: Oriented x3 Gait: Steady ED Course And Treatment - Laboratory Results Result Diagrams: 02/13/18 13:57 02/13/18 13:57 O2 Sat by Pulse Oximetry: 97 (On RA) Pulse Ox Interpretation: Normal Medical Decision Making Medical Decision Making: Impression: abdominal pain, dysuria, chills, sore throat - viral syndrome, vs uti, lesslikley pna. Plan: * Labs * CXR * IV fluids * Tylenol 975 mg PO * Influenza A B test * Rapid Strep group * UA pt reassesed abd sfot nottp no flank ttp. sleeping in nad. pain improved. pt asking for d.c urine treated Disposition - Disposition Referrals: [facility] [Outside] [facility] [Outside] Disposition: HOME/ ROUTINE Disposition Time: 14:52 Condition: STABLE Additional Instructions: follow up in clinic. return to er with worsening symptoms or concerns. Prescriptions: Ciprofloxacin [Cipro] 500 mg PO BID #14 tab Instructions: Urinary Tract Infection, Adult (DC), Acute Abdomen (Belly Pain) Forms: [employer] (Portuguese) - Clinical Impression Clinical Impression: Abdominal pain, UTI (urinary tract infection) - Scribe Statement The provider has reviewed the documentation as recorded by the Scribe Camilo Candelario All medical record entries made by the Scribe were at my direction and personally dictated by me. I have reviewed the chart and agree that the record accurately reflects my personal performance of the history, physical exam, medical decision making, and the department course for this patient. I have also personally directed, reviewed, and agree with the discharge instructions and disposition.
[2018-02-13] MEDS ORDERED: Sodium Chloride 0.9% 1,000 ML ONE (13:45)
[2018-02-13 14:04] LABS: BASO % 0.5 % (0.0-2.0); EOS # 0.1 K/uL (0.0-0.7); HEMOGLOBIN 12.6 g/dL (11.0-16.0); LYMPH % 34.5 % (20.0-40.0); MEAN CELL VOLUME 90.8 fL (81.0-99.0); MEAN CORPUSCULAR HEMOGLOBIN 30.6 pg (27.0-31.0); MEAN CORPUSCULAR HGB CONC 33.7 g/dL (33.0-37.0); MEAN PLATELET VOLUME 9.2 fL (7.2-11.7); MONO # 0.3 K/uL (0.0-0.8); MONO % 5.2 % (0.0-10.0); NEUT # 3.4 K/uL (1.8-7.0); NEUT % 58.8 % (50.0-75.0); RBC 4.13 Mil/uL (3.80-5.20); RED CELL DISTRIBUTION WIDTH 13.4 % (11.5-14.5); WHITE BLOOD COUNT 5.7 K/uL (4.8-10.8)
[2018-02-13 14:09] LABS: INR 0.9; PROTHROMBIN TIME 10.5 SECONDS (9.7-12.2)
[2018-02-13 14:12] LABS: INFLUENZA A B NEGATIVE FOR FLU A/B (NEGATIVE)
[2018-02-13 14:14] LABS: ALB/GLOB RATIO 1.3 (1.0-2.1); ALBUMIN 3.8 g/dL (3.5-5.0); CALCIUM 9.1 mg/dl (8.6-10.4)
[2018-02-13 14:25] LABS: HCG,QUALITATIVE URINE NEGATIVE (NEGATIVE)
--- NOTE | 2018-02-13 14:31 | RAD ---
HISTORY: Abdominal pain. COMPARISON: 11/28/2017 TECHNIQUE: Chest PA and lateral FINDINGS: LUNGS: No active pulmonary disease. PLEURA: No significant pleural effusion identified. No pneumothorax apparent. CARDIOVASCULAR: No radiographic findings to suggest acute or significant cardiovascular disease. OSSEOUS STRUCTURES: No significant abnormalities. VISUALIZED UPPER ABDOMEN: Normal. OTHER FINDINGS: None. IMPRESSION: No active disease. No significant interval change compared to the prior examination(s).
[2018-02-13 14:38] VITALS: BP 164/86; PULSE 76; RESP 18
[2018-02-13 14:44] LABS: SQUAMOUS EPITHIAL 2 /hpf (0-5); URINE BACTERIA MOD (<OCC); URINE BILIRUBIN NEGATIVE (NEGATIVE); URINE BLOOD NEGATIVE (NEGATIVE); URINE CLARITY Hazy (Clear); URINE COLOR Yellow (YELLOW); URINE GLUCOSE (UA) 3+ mg/dL (Normal); URINE LEUKOCYTE ESTERASE 1+ Leu/uL (Negative); URINE PROTEIN NEGATIVE (NEGATIVE); URINE UROBILINOGEN NORMAL mg/dL (0.2-1.0)
== END 2018-02-13 15:30 | disposition home or self-care (01) ==
LOC: C.ER 13:14
DX: N39.0 Urinary tract infection, site not specified (principal); R10.9 Unspecified abdominal pain; I10 Essential (primary) hypertension; E78.5 Hyperlipidemia, unspecified; F17.210 Nicotine dependence, cigarettes, uncomplicated
CPT/HCPCS: 71046; 80053; 81001; 83690; 84703; 85025; 85610; 85730; 87070; 87430; 87804; 96361; 96374; 99285; J1885; J7040

== ENCOUNTER 2018-02-24 20:18 | Emergency (ER) | payer MEDICARE, MEDICAID ==
[2018-02-24 20:35] VITALS: BP 160/100; PULSE 76; RESP 18; TEMP 98; O2SAT 98
--- NOTE | 2018-02-24 22:13 | C.PDOC ---
History Of Present Illness 52 y/o female presents to the ED complaining of pruritus and subjective feeling of facial swelling for 2 days. Was using bacitracin to apply to her face, and then started breaking out. She denies any throat swelling, difficulty swallowing , or difficulty breathing. Time Seen by Provider: 02/24/18 21:09 Chief Complaint (Nursing): Abnormal Skin Integrity History Per: Patient History/Exam Limitations: no limitations Onset/Duration Of Symptoms: Days (x2) Current Symptoms Are (Timing): Still Present Past Medical History Reviewed: Historical Data, Nursing Documentation, Vital Signs Vital Signs: Last Vital Signs Temp 98 F 02/24/18 20:29 Pulse 76 02/24/18 20:29 Resp 18 02/24/18 20:29 BP 160/100 H 02/24/18 20:29 Pulse Ox 98 02/24/18 22:48 - Medical History PMH: HTN, Hyperlipidemia, Schizophrenia Denies: HIV, Seizures, Sexually Transmitted Disease Family History: States: Unknown Family Hx - Social History Hx Tobacco Use: Yes Hx Alcohol Use: Yes Hx Substance Use: No (DENIED) - Immunization History Hx Tetanus Toxoid Vaccination: No Hx Influenza Vaccination: Yes (08/2017) Hx Pneumococcal Vaccination: No Review Of Systems Except As Marked, All Systems Reviewed And Found Negative. Constitutional: Negative for: Fever, Chills ENT: Positive for: Other (+ facial swelling, + itching). Negative for: Mouth Swelling, Throat Swelling Respiratory: Negative for: Shortness of Breath Physical Exam - Physical Exam Appears: Non-toxic, No Acute Distress Skin: Warm, Dry, Other (fine rash to face, no swelling) Head: Atraumatic, Normacephalic Eye(s): bilateral: Normal Inspection, PERRL, EOMI Ear(s): Bilateral: Normal Nose: Normal Oral Mucosa: Moist Lips: Normal Appearing, No Swelling Throat: Normal (with patent airway, no throat or mouth swelling), Other (Normal voice) Neck: Normal ROM, Supple Cardiovascular: Rhythm Regular, No Murmur Respiratory: Normal Breath Sounds, No Accessory Muscle Use, No Rhonchi, No Wheezing Neurological/Psych: Oriented x3, Normal Speech ED Course And Treatment O2 Sat by Pulse Oximetry: 98 (RA) Pulse Ox Interpretation: Normal Progress Note: Patient given Benadryl, prednisone, and Pepcid. On reevaluation patient is AAOx3, with no respiratory distress. Lungs clear. Pt is stable for d/ c home. Disposition - Disposition Referrals: Non [facility] Provider, [Primary Care Provider] - Disposition: HOME/ ROUTINE Disposition Time: 22:36 Condition: STABLE Additional Instructions: Follow up with your PMD/clinic within 1-2 days. return to Ed if feel worse. 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 - Scribe Statement The provider has reviewed the documentation as recorded by the Scribe (Ashley Burgos) All medical record entries made by the Scribe were at my direction and personally dictated by me. I have reviewed the chart and agree that the record accurately reflects my personal performance of the history, physical exam, medical decision making, and the department course for this patient. I have also personally directed, reviewed, and agree with the discharge instructions and disposition.
== END 2018-02-24 22:55 | disposition home or self-care (01) ==
LOC: SUPCPDRO 20:18 → C.ER 20:18
DX: T78.40XA Allergy, unspecified, initial encounter (principal)

== ENCOUNTER 2018-04-23 10:56 | Emergency (ER) | payer MEDICARE, MEDICAID ==
[2018-04-23 11:54] LABS: SQUAMOUS EPITHIAL 20 /hpf (0-5); URINE BILIRUBIN NEGATIVE (NEGATIVE); URINE BLOOD NEGATIVE (NEGATIVE); URINE CLARITY Hazy (Clear); URINE COLOR Yellow (YELLOW); URINE GLUCOSE (UA) 1+ mg/dL (Normal); URINE LEUKOCYTE ESTERASE 1+ Leu/uL (Negative); URINE PROTEIN NEGATIVE (NEGATIVE); URINE UROBILINOGEN NORMAL mg/dL (0.2-1.0)
--- NOTE | 2018-04-23 11:54 | C.PDOC ---
History Of Present Illness 52 yo female come in for evaluation of cold sx for past 2 weeks associated with nasal congestion and dry cough. Pt also c/o vaginal irritation, white discharges and " bump on my private area". Otherwise, pt denies high fever, chills, headache, dizziness, drooling, dysphagia, dyspnea, CP, SOB, wheezing, palpitation, abd. pain, V/D, UTI sx, back pain. Ambulate to Ed for evaluation, not in any apparent distress. Time Seen by Provider: 04/23/18 11:13 Chief Complaint (Nursing): Cough, Cold, Congestion Past Medical History Vital Signs: Last Vital Signs Temp 98 F 04/23/18 10:57 Pulse 91 H 04/23/18 10:57 Resp 20 04/23/18 10:57 BP 164/98 H 04/23/18 10:57 Pulse Ox 98 04/23/18 11:59 - Medical History PMH: HTN, Hyperlipidemia, Schizophrenia Denies: HIV, Seizures, Sexually Transmitted Disease Family History: States: Unknown Family Hx - Social History Hx Tobacco Use: Yes Hx Alcohol Use: Yes Hx Substance Use: No (DENIED) - Immunization History Hx Tetanus Toxoid Vaccination: No Hx Influenza Vaccination: Yes (08/2017) Hx Pneumococcal Vaccination: No Physical Exam - Physical Exam Appears: Well, No Acute Distress Skin: Normal Color, Warm, Dry, No Rash Head: Normacephalic Eye(s): bilateral: PERRL Ear(s): Bilateral: Normal Nose: No Flaring, Discharge (B/L nasal discharges) Oral Mucosa: Moist Tongue: Normal Appearing Throat: No Erythema, No Drooling Neck: Trachea Midline, Supple Cardiovascular: Rhythm Regular, No Friction Rub, No Murmur Respiratory: No Decreased Breath Sounds, No Accessory Muscle Use, No Stridor, No Wheezing Gastrointestinal/Abdominal: Soft, No Tenderness, No Distention, No Guarding Back: No CVA Tenderness Pelvic: Vaginal Discharge (thick white discharges) Extremity: Normal ROM, No Deformity, No Swelling Neurological/Psych: Oriented x3, Normal Speech ED Course And Treatment O2 Sat by Pulse Oximetry: 98 Pulse Ox Interpretation: Normal Progress Note: On re-evaluation, pt is afebrile, hemodynamicaly stable. non- toxic. Tolerate po well in ED. PulsEOx 98% RA. ENT: no acute findings. neck: Supple, (-) meningeal sign. Lungs: CTA B/L, BS equal B/L. Abd: benign, (-) guarding, (-) rebound. back: (-)CVA tenderness. UA results review (+) UTI. Pt has clinical findings c/w bronchitis, vulvovaginitis candidial, UTI. Pt advised on course of ds. ref. to f/u with PMD, ULTRASOUND TECHNOL in 2-3 days for re-eval. return to ED if any worsening or new changes. Disposition Counseled Patient/Family Regarding: Studies Performed, Diagnosis, Need For Followup, Rx Given - Disposition Referrals: [facility] [Outside] Disposition: HOME/ ROUTINE Disposition Time: 12:02 Condition: STABLE Additional Instructions: Encourage fluids Take medication as prescribed Follow up with PMD in 2-3 days for re-evaluation. return to ED if any worsening or new changes. Prescriptions: Ciprofloxacin [Cipro] 1 tab PO BID #14 tab Fluconazole [Diflucan] 100 mg PO ONCE #3 tab Miconazole 2% Vaginal [Monistat 7 Vaginal Cream] 1 applic VG HS #1 tube Instructions: Acute Bronchitis, Vaginal Yeast Infection (DC), Urinary Tract Infections in Adults Forms: [employer] (Nepali) - Clinical Impression Clinical Impression: UTI (urinary tract infection), Bronchitis, Vulvovaginal candidiasis
[2018-04-23 12:34] VITALS: BP 158/84; PULSE 86; RESP 18; TEMP 98.2; O2SAT 99
== END 2018-04-23 12:35 | disposition home or self-care (01) ==
LOC: C.ER 10:56
DX: N39.0 Urinary tract infection, site not specified (principal); J40 Bronchitis, not specified as acute or chronic; B37.3 Candidiasis of vulva and vagina; I10 Essential (primary) hypertension; E78.5 Hyperlipidemia, unspecified; F20.9 Schizophrenia, unspecified; Z72.0 Tobacco use

== ENCOUNTER 2018-05-03 11:51 | Emergency (ER) | payer MEDICARE, MEDICAID ==
[2018-05-03 12:12] VITALS: BP 175/88; PULSE 88; RESP 20; TEMP 98.9; O2SAT 99
--- NOTE | 2018-05-03 12:31 | C.PDOC ---
History Of Present Illness 52 y/o female presents to the ED complaining of a rash to her posterior neck and both cheeks for the past few days. Of note, patient is currently taking Cipro for a UTI and is concerned the rash is a reaction to the medication. Patient tried taking 15 mg Benadryl which she complains made her drowsy. Also complains that her throat itches. Otherwise no fever, difficulty breathing, or lip/throat swelling. Time Seen by Provider: 05/03/18 12:21 Chief Complaint (Nursing): Abnormal Skin Integrity History Per: Patient History/Exam Limitations: no limitations Onset/Duration Of Symptoms: Days Current Symptoms Are (Timing): Still Present Past Medical History Reviewed: Historical Data, Nursing Documentation, Vital Signs Vital Signs: Last Vital Signs Temp 98.9 F 05/03/18 12:10 Pulse 88 05/03/18 12:10 Resp 20 05/03/18 12:10 BP 175/88 H 05/03/18 12:10 Pulse Ox 99 05/03/18 12:36 - Medical History PMH: HTN, Hyperlipidemia, Schizophrenia Denies: HIV, Seizures, Sexually Transmitted Disease Family History: States: Unknown Family Hx - Social History Hx Tobacco Use: Yes Hx Alcohol Use: Yes Hx Substance Use: No (DENIED) - Immunization History Hx Tetanus Toxoid Vaccination: No Hx Influenza Vaccination: Yes (08/2017) Hx Pneumococcal Vaccination: No Review Of Systems Except As Marked, All Systems Reviewed And Found Negative. Constitutional: Negative for: Fever ENT: Positive for: Other (throat itchiness). Negative for: Mouth Swelling, Throat Pain, Throat Swelling Respiratory: Negative for: Shortness of Breath Skin: Positive for: Rash Physical Exam - Physical Exam Appears: Well, Non-toxic, No Acute Distress Skin: Warm, Dry, Rash (minimal rash noted to posterior neck and cheeks) Head: Normacephalic Eye(s): bilateral: Normal Inspection, EOMI Oral Mucosa: Moist Lips: Normal Appearing, No Swelling Throat: Normal, No Erythema, No Exudate, Other (airway is patent, no swelling) Neck: Normal ROM, Trachea Midline, Supple, Other (Normal voice) Cardiovascular: Rhythm Regular Respiratory: Normal Breath Sounds, No Accessory Muscle Use, No Rales, No Rhonchi , No Wheezing, Other (No respiratory distress) Extremity: Bilateral: Atraumatic, Normal Color And Temperature, Normal ROM Neurological/Psych: Oriented x3, Normal Speech ED Course And Treatment O2 Sat by Pulse Oximetry: 99 (RA) Pulse Ox Interpretation: Normal Progress Note: Patient treated in the ED with Benadryl, Pepcid, and Prednisone PO. On examination patient remains AAOx3, afebrile, in no acute distress, with no throat swelling or SOB. Repeat PulseOx is 99% on room air. Patient is stable for discharge home. Provided prescriptions for Benadryl, Pepcid, Prednisone, and Hydrocortisone cream. Advised patient to follow up with PMD for further evaluation. Disposition Counseled Patient/Family Regarding: Diagnosis, Need For Followup, Rx Given - Disposition Disposition: HOME/ ROUTINE Disposition Time: 12:29 Condition: STABLE Additional Instructions: Follow up with PMD mo 1-2 days. Return to ED if feel worse. 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 - Scribe Statement The provider has reviewed the documentation as recorded by the Scribe (Ashley Burgos) All medical record entries made by the Scribe were at my direction and personally dictated by me. I have reviewed the chart and agree that the record accurately reflects my personal performance of the history, physical exam, medical decision making, and the department course for this patient. I have also personally directed, reviewed, and agree with the discharge instructions and disposition.
== END 2018-05-03 13:15 | disposition home or self-care (01) ==
LOC: C.ER 11:51
DX: L30.9 Dermatitis, unspecified (principal); E78.5 Hyperlipidemia, unspecified; I10 Essential (primary) hypertension; F20.9 Schizophrenia, unspecified; Z72.0 Tobacco use

== ENCOUNTER 2018-06-08 18:39 | Emergency (ER) | payer MEDICARE, MEDICAID ==
[2018-06-08 18:45] VITALS: BMI 24.2
[2018-06-08] MEDS ORDERED: DiphenhydrAMINE 12.5 mg/5 ml LIQ UD (5 ml) PO STA (20:17)
--- NOTE | 2018-06-08 20:22 | C.PDOC ---
History Of Present Illness 52-year-old female presents to the ER complaining of a rash to her back, arms, and legs for the past few days. Patient reports she was at a cook out last week and is unsure of possible exposure to bugs or allergens. Also states she has had loose stools. Otherwise denies any fever, chills, nausea, or vomiting. Time Seen by Provider: 06/08/18 19:38 Chief Complaint (Nursing): Abnormal Skin Integrity History Per: Patient History/Exam Limitations: no limitations Onset/Duration Of Symptoms: Days Current Symptoms Are (Timing): Still Present Past Medical History Reviewed: Historical Data, Nursing Documentation, Vital Signs Vital Signs: Last Vital Signs Temp 97.9 F 06/08/18 21:06 Pulse 81 06/08/18 21:06 Resp 16 06/08/18 21:06 BP 160/90 H 06/08/18 21:06 Pulse Ox 97 06/08/18 21:15 - Medical History PMH: HTN, Hyperlipidemia, Schizophrenia Denies: HIV, Seizures, Sexually Transmitted Disease Family History: States: Unknown Family Hx - Social History Hx Tobacco Use: Yes Hx Alcohol Use: Yes Hx Substance Use: No (DENIED) - Immunization History Hx Tetanus Toxoid Vaccination: No Hx Influenza Vaccination: Yes (08/2017) Hx Pneumococcal Vaccination: No Review Of Systems Except As Marked, All Systems Reviewed And Found Negative. Constitutional: Negative for: Fever, Chills Gastrointestinal: Positive for: Diarrhea. Negative for: Nausea, Vomiting Skin: Positive for: Rash Physical Exam - Physical Exam Appears: Non-toxic, No Acute Distress Skin: Warm, Rash (scattered insect bites to bilateral lower arms and legs) Head: Atraumatic, Normacephalic Eye(s): bilateral: Normal Inspection Oral Mucosa: Moist Neck: Normal ROM, Supple Chest: Symmetrical Respiratory: No Accessory Muscle Use Extremity: Bilateral: Atraumatic, Normal ROM Pulses: Left Radial: Normal, Right Radial: Normal Neurological/Psych: Oriented x3, Normal Speech ED Course And Treatment O2 Sat by Pulse Oximetry: 97 (RA) Pulse Ox Interpretation: Normal Medical Decision Making Medical Decision Making: Plan: --Benadryl 25 mg PO --Prednisone 40 mg PO Disposition - Disposition Referrals: [facility] at [facility] [Outside] Disposition: HOME/ ROUTINE Disposition Time: 20:38 Condition: GOOD Additional Instructions: Follow up with the medical doctor/clinic within 1-2 days without fail. Return if worsened. Prescriptions: DiphenhydrAMINE [Benadryl] 25 mg PO QID #28 cap Diphenhydramine HCl/Zinc Acet [Benadryl Itch Stopping Crm] 28.3 gm TP TID #2 cream..g. predniSONE [Prednisone] 20 mg PO BID #10 tab Instructions: Insect Bites and Stings (DC) Forms: [employer] (Divehi) - Clinical Impression Clinical Impression: Insect bite, Viral syndrome - PA / ENGAGEMENT SPECIALIST / Resident 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 - Scribe Statement The provider has reviewed the documentation as recorded by the Scribe (Ashley Burgos) All medical record entries made by the Scribe were at my direction and personally dictated by me. I have reviewed the chart and agree that the record accurately reflects my personal performance of the history, physical exam, medical decision making, and the department course for this patient. I have also personally directed, reviewed, and agree with the discharge instructions and disposition.
[2018-06-08 21:06] VITALS: BP 160/90; PULSE 81; RESP 16; TEMP 97.9
[2018-06-08 21:14] VITALS: O2SAT 97
== END 2018-06-08 21:19 | disposition home or self-care (01) ==
LOC: C.ER 18:39
DX: S40.862A Insect bite (nonvenomous) of left upper arm, initial encounter (principal); S40.861A Insect bite (nonvenomous) of right upper arm, initial encounter; S80.862A Insect bite (nonvenomous), left lower leg, initial encounter; S80.861A Insect bite (nonvenomous), right lower leg, initial encounter; W57.XXXA Bitten or stung by nonvenomous insect and other nonvenomous arthropods, initial encounter; Y92.89 Other specified places as the place of occurrence of the external cause; B34.9 Viral infection, unspecified

== ENCOUNTER 2018-07-30 08:52 | Emergency (ER) | payer MEDICARE, MEDICAID ==
[2018-07-30 09:02] VITALS: BMI 26.6
[2018-07-30 09:09] VITALS: RESP 18
--- NOTE | 2018-07-30 09:53 | C.PDOC ---
History Of Present Illness 52 y/o female presents to ED with c/o cough associated with nasal congestion for 2 days. Patient states when he coughs, chest hurts and radiates to back. Patient denies recent travel, fever, hemoptysis, rash, nausea, vomiting or any other complaints at this time. Time Seen by Provider: 07/30/18 09:18 Chief Complaint (Nursing): Chest Pain History Per: Patient History/Exam Limitations: no limitations Onset/Duration Of Symptoms: Days Current Symptoms Are (Timing): Still Present Past Medical History Reviewed: Historical Data, Nursing Documentation, Vital Signs Vital Signs: Last Vital Signs Temp 97.9 F 07/30/18 12:04 Pulse 73 07/30/18 12:04 Resp 18 07/30/18 12:04 BP 167/92 H 07/30/18 12:04 Pulse Ox 96 07/30/18 12:04 - Medical History PMH: HTN, Hyperlipidemia, Schizophrenia Surgical History: No Surg Hx Family History: States: No Known Family Hx - Social History Hx Tobacco Use: Yes Hx Alcohol Use: Yes Hx Substance Use: No (DENIED) - Immunization History Hx Tetanus Toxoid Vaccination: No Hx Influenza Vaccination: Yes (08/2017) Hx Pneumococcal Vaccination: No Review Of Systems Constitutional: Negative for: Fever, Chills ENT: Positive for: Nose Congestion Respiratory: Positive for: Cough. Negative for: Hemoptysis Gastrointestinal: Negative for: Nausea, Vomiting Musculoskeletal: Positive for: Back Pain Physical Exam - Physical Exam Appears: Non-toxic, No Acute Distress Skin: Warm, Dry, No Rash Head: Atraumatic, Normacephalic Eye(s): bilateral: Normal Inspection Nose: Discharge (rhinorrhea), Other (nasal congestion) Oral Mucosa: Moist Throat: Normal, No Erythema, No Exudate Neck: Supple Cardiovascular: Rhythm Regular Respiratory: Normal Breath Sounds, No Rales, No Rhonchi, No Wheezing Gastrointestinal/Abdominal: Soft, No Tenderness, No Guarding, No Rebound Extremity: Normal ROM, No Pedal Edema, Capillary Refill (<2 seconds) Neurological/Psych: Oriented x3, Normal Speech, Normal Cognition ED Course And Treatment - Laboratory Results Result Diagrams: 07/30/18 10:10 07/30/18 10:10 ECG: Interpreted By Me, Viewed By Me ECG Rhythm: Sinus Rhythm Rate From EC (BPM) O2 Sat by Pulse Oximetry: 99 (RA) Pulse Ox Interpretation: Normal - Radiology CXR: Viewed By Me, Read By Radiologist CXR Interpretation: Yes: No Acute Disease. No: Infiltrates, Cardiomegaly Medical Decision Making Medical Decision Making: Patient symptoms pleuritic in nature and secondary to bronchitis. Labs are within normal limits. On re-exam, the patient reports improvement of symptoms,. Ambulatory in the ED with steady gait. Lungs are CTA, heart is RRR, abdomen is soft, non-tender and the patient is tolerating PO well. Follow up with the medical doctor within 1-2 days, return if worsened. Disposition - Disposition Referrals: [facility] at [facility] [Outside] Disposition: HOME/ ROUTINE Disposition Time: 11:30 Condition: STABLE Additional Instructions: Follow up with the medical doctor within 1-2 days. Return if worsened. Prescriptions: Azithromycin [Zithromax] 250 mg PO DAILY #6 tab Ibuprofen [Motrin] 1 tab PO TID PRN #30 tab PRN Reason: Pain Ibuprofen [Motrin] 600 mg PO TID #21 tab predniSONE [Prednisone] 20 mg PO BID #10 tab Vit 10/Iron/Folic/Dha [Vitafol-Ob+Dha Combo Pack] 1 each PO DAILY #15 combo..pkg Instructions: Acute Bronchitis Forms: [employer] (Lao) - Clinical Impression Clinical Impression: Bronchitis - PA / CUSTOMER EXPERIENCE PROFESSIONAL / Resident 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 - Scribe Statement The provider has reviewed the documentation as recorded by the Leannaibjasvir Ordonez All medical record entries made by the Scribe were at my direction and personally dictated by me. I have reviewed the chart and agree that the record accurately reflects my personal performance of the history, physical exam, medical decision making, and the department course for this patient. I have also personally directed, reviewed, and agree with the discharge instructions and disposition.
[2018-07-30] MEDS ORDERED: Albuterol-Ipratrop 3 mg / 0.5 (3 ml) UD IH STA (10:01)
[2018-07-30] MEDS ORDERED: Albuterol-Ipratrop 3 mg / 0.5 (3 ml) UD ONE (10:04)
[2018-07-30 10:17] LABS: BASO # 0.1 K/uL (0.0-0.2); BASO % 0.9 % (0.0-2.0); EOS % 0.5 % (0.0-4.0); HEMOGLOBIN 13.8 g/dL (11.0-16.0); LYMPH # 1.5 K/uL (1.0-4.3); LYMPH % 24.6 % (20.0-40.0); MEAN CELL VOLUME 91.6 fL (81.0-99.0); MEAN CORPUSCULAR HEMOGLOBIN 30.8 pg (27.0-31.0); MEAN CORPUSCULAR HGB CONC 33.7 g/dL (33.0-37.0); MEAN PLATELET VOLUME 9.3 fL (7.2-11.7); MONO # 0.5 K/uL (0.0-0.8); MONO % 7.3 % (0.0-10.0); NEUT # 4.1 K/uL (1.8-7.0); NEUT % 66.7 % (50.0-75.0); NRBC % 0.1 % (0.0-2.0); RBC 4.49 Mil/uL (3.80-5.20); RED CELL DISTRIBUTION WIDTH 13.7 % (11.5-14.5); WHITE BLOOD COUNT 6.2 K/uL (4.8-10.8)
[2018-07-30 10:31] LABS: ALB/GLOB RATIO 1.6 (1.0-2.1); ALBUMIN 4.3 g/dL (3.5-5.0); ALT/SGPT 23 U/L (9-52); AST/SGOT 16 U/L (14-36); BLOOD UREA NITROGEN 14 mg/dL (7-17); CALCIUM 9.8 mg/dl (8.6-10.4); GFR NON-AFRICAN AMERICAN > 60
[2018-07-30 10:40] LABS: B-TYPE NATRIURETIC PEPTIDE 82.8 pg/mL (0-900)
[2018-07-30] MEDS ORDERED: Sodium Chloride 0.9% 1,000 ML IV ONE (10:42)
[2018-07-30] MEDS ORDERED: Sodium Chloride 0.9% 1,000 ML ONE (10:58)
--- NOTE | 2018-07-30 11:28 | RAD ---
Date of service: 07/30/2018 PROCEDURE: CHEST RADIOGRAPH, 1 VIEW HISTORY: chest pain COMPARISON: Chest radiograph dated 02/13/2018. FINDINGS: LUNGS: Clear. PLEURA: No pneumothorax or pleural fluid seen. CARDIOVASCULAR: Normal. OSSEOUS STRUCTURES: Unchanged. VISUALIZED UPPER ABDOMEN: Normal. OTHER FINDINGS: None. IMPRESSION: No active disease.
[2018-07-30 12:04] VITALS: BP 167/92; PULSE 73; TEMP 97.9
[2018-07-31 16:36] VITALS: O2SAT 99
--- NOTE | 2018-07-31 19:32 | CARD ---
APPROVED REPORT Date of service: 07/30/2018 EKG Measurement Heart [id number] <Conclusion> Normal sinus rhythm Possible Left atrial enlargement Septal infarct, age undetermined Abnormal ECG
== END 2018-07-30 12:13 | disposition home or self-care (01) ==
LOC: C.ER 08:52
DX: J40 Bronchitis, not specified as acute or chronic (principal); I10 Essential (primary) hypertension; E78.5 Hyperlipidemia, unspecified; F20.9 Schizophrenia, unspecified; Z72.0 Tobacco use
CPT/HCPCS: 71045; 80053; 83880; 84484; 85025; 93005; 94640; 96361; 96374; 99284; J1885; J7030

== ENCOUNTER 2018-09-03 15:40 | Emergency (ER) | payer MEDICARE, MEDICAID ==
[2018-09-03 15:41] VITALS: BMI 24.2
[2018-09-03 15:58] VITALS: BP 154/75; PULSE 82; RESP 19; TEMP 98.7; O2SAT 99
--- NOTE | 2018-09-03 16:29 | C.PDOC ---
History Of Present Illness 53 y/o female, with PMHx of HTN, diabetes, and anemia, presents to ED for evaluation cramping lower abdominal pain, and urinary frequency for the last 3-4 days. Notes she had hysterectomy in 2010, reports she is not sexually active. She admits to being occasionally constipated. She also complains of sore throat for 3 days and pain to upper gums. Notes she has dentures but she is missing them. Pt was seen in this ED multiple times for various complaints. Denies chest pain, shortness of breath, n/v/d, back pain, dysuria, hematuria, fever, or chills. Time Seen by Provider: 09/03/18 16:26 Chief Complaint (Nursing): ENT Problem History Per: Patient History/Exam Limitations: no limitations Onset/Duration Of Symptoms: Days Current Symptoms Are (Timing): Still Present Location Of Pain/Discomfort: Suprapubic Radiation Of Pain To:: None Quality Of Discomfort: Cramping Associated Symptoms: Urinary Symptoms. denies: Nausea, Vomiting, Diarrhea Exacerbating Factors: None Alleviating Factors: None Last Bowel Movement: Today Recent travel outside of the [place]: No Additional History Per: Patient Abnormal Vaginal Bleeding: No Past Medical History Reviewed: Historical Data, Nursing Documentation, Vital Signs Vital Signs: Last Vital Signs Temp 98.7 F 09/03/18 15:53 Pulse 82 09/03/18 15:53 Resp 19 09/03/18 15:53 BP 154/75 H 09/03/18 15:53 Pulse Ox 99 09/03/18 15:53 - Medical History PMH: HTN, Hyperlipidemia, Schizophrenia Denies: HIV, Seizures, Sexually Transmitted Disease Family History: States: Unknown Family Hx - Social History Hx Tobacco Use: Yes Hx Alcohol Use: No (DENIES) Hx Substance Use: No (DENIES) - Immunization History Hx Tetanus Toxoid Vaccination: No Hx Influenza Vaccination: No Hx Pneumococcal Vaccination: No Review Of Systems Except As Marked, All Systems Reviewed And Found Negative. Constitutional: Negative for: Fever, Chills ENT: Positive for: Mouth Pain (upper gum), Throat Pain. Negative for: Ear Pain, Nose Congestion Cardiovascular: Negative for: Chest Pain Respiratory: Negative for: Shortness of Breath Gastrointestinal: Positive for: Abdominal Pain. Negative for: Nausea, Vomiting, Diarrhea Genitourinary: Positive for: Frequency. Negative for: Dysuria, Hematuria, Vaginal Discharge Musculoskeletal: Negative for: Back Pain Physical Exam - Physical Exam Appears: Non-toxic, No Acute Distress Skin: Normal Color, Warm, Dry Head: Atraumatic, Normacephalic Eye(s): bilateral: Normal Inspection Oral Mucosa: Moist Tongue: Normal Appearing Lips: Normal Appearing Teeth: No Dentures, Other (missing all of upper teeth and partial lower teeth) Gingiva: No Erythema, No Swelling, No Tender, No Bleeding Throat: Normal, No Erythema, No Exudate, No Drooling Neck: Normal ROM, Supple Chest: Symmetrical Cardiovascular: Rhythm Regular Respiratory: Normal Breath Sounds, No Rales, No Rhonchi, No Wheezing Gastrointestinal/Abdominal: Soft, No Tenderness, No Guarding, No Rebound Back: No CVA Tenderness Extremity: Normal ROM Neurological/Psych: Oriented x3, Normal Speech ED Course And Treatment - Laboratory Results Result Diagrams: 09/03/18 17:42 09/03/18 17:42 O2 Sat by Pulse Oximetry: 99 Pulse Ox Interpretation: Normal Medical Decision Making Medical Decision Making: Plan: Blood work Urinalysis Abdomen Xray IV fluids Pt is being an obstructionist. She initially refused IV. She was not compliant with throat examination. Blood sugar was found to be over 500. Patient is declining insulin. Patient agreed to insulin and insisted she is leaving. Left AMA, but did not sign papers. Disposition - Disposition Disposition: AGAINST MEDICAL ADVICE Disposition Time: 18:46 Condition: GUARDED Forms: [employer] (Lao) - Clinical Impression Clinical Impression: Hyperglycemia - Scribe Statement The provider has reviewed the documentation as recorded by the Scribe KP All medical record entries made by the Scribe were at my direction and personally dictated by me. I have reviewed the chart and agree that the record accurately reflects my personal performance of the history, physical exam, medical decision making, and the department course for this patient. I have also personally directed, reviewed, and agree with the discharge instructions and disposition.
[2018-09-03] MEDS ORDERED: Sodium Chloride 0.9% 1,000 ML IV ONE (16:59)
[2018-09-03] MEDS ORDERED: Belladonna-Phenobarbital PO STA (17:01)
[2018-09-03] MEDS ORDERED: Belladonna-Phenobarbital ONE (17:18)
[2018-09-03] MEDS ORDERED: Sodium Chloride 0.9% 1,000 ML ONE (17:18)
[2018-09-03 17:42] LABS: URINE BILIRUBIN NEGATIVE (NEGATIVE); URINE BLOOD NEGATIVE (NEGATIVE); URINE CLARITY Clear (Clear); URINE COLOR Straw (YELLOW); URINE GLUCOSE (UA) 3+ mg/dL (Normal); URINE LEUKOCYTE ESTERASE NEG Leu/uL (Negative); URINE PROTEIN NEGATIVE (NEGATIVE); URINE UROBILINOGEN NORMAL mg/dL (0.2-1.0)
[2018-09-03 17:47] LABS: BASO # 0.1 K/uL (0.0-0.2); BASO % 1.5 % (0.0-2.0); EOS # 0.1 K/uL (0.0-0.7); EOS % 1.6 % (0.0-4.0); HEMOGLOBIN 12.8 g/dL (11.0-16.0); LYMPH # 2.4 K/uL (1.0-4.3); LYMPH % 43.3 % (20.0-40.0); MEAN CELL VOLUME 91.1 fL (81.0-99.0); MEAN CORPUSCULAR HEMOGLOBIN 30.8 pg (27.0-31.0); MEAN CORPUSCULAR HGB CONC 33.8 g/dL (33.0-37.0); MEAN PLATELET VOLUME 9.1 fL (7.2-11.7); MONO # 0.3 K/uL (0.0-0.8); MONO % 5.3 % (0.0-10.0); NEUT # 2.6 K/uL (1.8-7.0); NEUT % 48.3 % (50.0-75.0); NRBC % 0.1 % (0.0-2.0); RBC 4.16 Mil/uL (3.80-5.20); WHITE BLOOD COUNT 5.5 K/uL (4.8-10.8)
[2018-09-03 18:02] LABS: BARBITURATES, UR NEGATIVE (NEGATIVE); BENZODIAZEPINES, UR NEGATIVE (NEGATIVE); OPIATES, UR NEGATIVE (NEGATIVE); PHENCYCLIDINE, UR NEGATIVE (NEGATIVE)
[2018-09-03 18:05] LABS: BLOOD UREA NITROGEN 13 mg/dL (7-17); CALCIUM 9.3 mg/dl (8.6-10.4); GFR NON-AFRICAN AMERICAN > 60
[2018-09-03] MEDS ORDERED: (Novolin R) Insulin Human Regular 100 units/ml vial SC ONE (18:19)
[2018-09-03] MEDS ORDERED: (Novolin R) Insulin Human Regular 100 units/ml vial ONE (18:34)
--- NOTE | 2018-09-03 18:43 | RAD ---
Date of service: 09/03/2018 HISTORY: abd pain COMPARISON: No prior. FINDINGS: BOWEL: Normal. No obstruction. No free air. Moderate retained fecal material scattered throughout the large bowel. Surgical clips in the left lower quadrant abdomen/left hemipelvis soft tissues. No gross free intra peritoneal gas identified. BONES: Normal. OTHER FINDINGS: None. IMPRESSION: Nonobstructive bowel gas pattern appreciated. No gross free intra peritoneal gas identified.
== END 2018-09-03 18:52 | disposition left against medical advice (07) ==
LOC: C.ER 15:40
DX: E11.65 Type 2 diabetes mellitus with hyperglycemia (principal)
CPT/HCPCS: 74018; 80048; 81001; 82009; 82948; 85025; 99285; G0480; J7030